=== PATIENT | male | born 1935 | race Caucasian/White ===

== ENCOUNTER 2017-08-16 06:22 | Day surgery (SDC) | payer MEDICARE ==
[~2017-08-16] VITALS: Ht 172.7 cm; Wt 70.5 kg
[2017-08-16] VITALS (9 sets, daily range): BP systolic 100–138; BP diastolic 50–80; PULSE 54–68; RESP 18–20; TEMP 97.6–97.8; O2SAT 93–98
[~2017-08-16 06:22] MED LIST: ALBU1.25 NEB; COUM2TAB PO; COUM5TAB PO; DIGO.125 PO; MEVA40TA6 PO; NITR0.4S SL; TOPR50TA PO; VIAG50TA PO
[2017-08-16] MEDS ORDERED: FLUT50SP EACH NARE (06:53)
[2017-08-16] MEDS ORDERED: FURO20TA PO (06:53)
[2017-08-16] MEDS ORDERED: WARF-18 PO (06:53)
[2017-08-16] MEDS ORDERED: MAGN400T2 PO (06:53)
[2017-08-16] MEDS ORDERED: ALBU.5I NEB (06:53)
[2017-08-16] MEDS ORDERED: VENTAER INH (06:53)
[2017-08-16] MEDS ORDERED: IPRA0.02 NEB (06:53)
[2017-08-16] MEDS ORDERED: LOVA40TA PO (06:53)
[2017-08-16] MEDS ORDERED: FLUT1INH7 INH (06:53)
[2017-08-16] MEDS ORDERED: GABA100C4 PO (06:53)
[2017-08-16] MEDS ORDERED: MEMA1TAB2 PO (06:53)
[2017-08-16] MEDS ORDERED: NITR0.4S SL (06:53)
[2017-08-16] MEDS ORDERED: BETA0.052 TOPICAL (06:53)
[2017-08-16] MEDS ORDERED: MULTTAB67 PO (06:53)
[2017-08-16] MEDS ORDERED: SODIUM CHLOR 0.9% 1000 ML IV SCH (07:00)
[2017-08-16] MEDS ORDERED: SODIUM CHLORIDE 2 ML FLUSH PRN IV FLUSH (07:15)
[2017-08-16 07:20] LABS: PROTHROMBIN TIME - PATIENT 10.6 SEC (9.8-11.6)
[2017-08-16] MEDS ORDERED: MIDAZOLAM HCL 2 MG/2 ML VIAL ONE (07:53)
[2017-08-16] MEDS ORDERED: LIDOCAINE HCL 1% 20 ML VIAL ONE (08:06)
--- NOTE | 2017-08-16 08:50 | PD.RAD ---
Post CT Procedure Prog Note Pre Procedure Diagnosis: (1) Lung mass Post Procedure Diagnosis: (1) Lung mass Procedure Date: Aug 16, 2017 Supervising Radiologist: Eric Mack JR Anesthesia: Conscious Sedation Plan of Activity Patient to Unit: ROPU Patient Condition: Good See PACS Report for procedural detail/treatment Biopsy Imaging Guidance: CT Side: Left Biopsy Procedure: Lung Specimen: Core Biopsy Findings: 3 core samples of left upper lobe lung mass. Post bx images show small volume intraparenchymal hemorrhage. Moderate sized PTX. CXR pending Plan CXR pending. Possible chest tube. Jr. Frederick,Eric Lam MD Aug 16, 2017 08:50
[2017-08-16] MEDS ORDERED: oxyCODONE/ACETAMINOPHEN 5 MG/325 MG TAB PO PRN (09:00)
[2017-08-16] MEDS ORDERED: SODIUM CHLORIDE 2 ML FLUSH BID IV FLUSH SCH (09:00)
--- NOTE | 2017-08-16 09:02 | RADRPT ---
EXAM DATE/TIME: 08/16/2017 08:52 [facility] COMPARISON: No previous studies available for comparison. INDICATIONS : Evaluate for pneumonthorax post left lung biopsy MEDICAL HISTORY : None. SURGICAL HISTORY : None. ENCOUNTER: Initial ACUITY: 1 day PAIN SCORE: 0/10 LOCATION: Left chest FINDINGS: A single frontal expiratory view of the chest was performed. The lungs are symmetrically aerated. No evidence of pneumothorax. Biopsied mass in the left lower lung zone. Mediastinal structures are in the midline. The cardio-mediastinal contours and bronchopulmonary markings are unremarkable for an expiratory exam . Osseous structures are intact. CONCLUSION: 1. No significant pneumothorax status post lung mass biopsy. Will Cartwright MD on August 16, 2017 at 8:59 Board Certified Radiologist. This report was verified electronically.
--- NOTE | 2017-08-16 09:34 | RADRPT ---
EXAM DATE/TIME: 08/16/2017 08:23 [facility] COMPARISON: No previous studies available for comparison. INDICATIONS : Left lung mass. SEDATION TIME: 30 minutes BIOPSY SITE: Left MEDICATION(S): 1.) 1.5 mg midazolam (Versed) IV 2.) 100 mcg fentanyl (Sublimaze) IV DEVICE(S): 1.) 20 gauge Temno core biopsy needle MEDICAL HISTORY : Cardiovascular disease. Hypertension. SURGICAL HISTORY : CABG Abdominal aortic aneurysm repair. ENCOUNTER: Initial ACUITY: 1 day PAIN SCORE: 0/10 LOCATION: Left chest A total of three core specimen(s) were obtained and sent to the laboratory for pathologic evaluation. PROCEDURE: 1. CT guided lung biopsy. 2. Conscious sedation with continuous EKG and oximetry monitoring. 3. EKG and oximetry remained stable throughout the procedure. Prior to the procedure informed consent was obtained. Any appropriate prior imaging studies were rev iewed. Using automated exposure control and adjustment of the mA and/or kV according to patient size, radiation dose was kept as low as reasonably achievable to obtain optimal diagnostic quality images. DICOM format image data is available electronically for review and comparison. The site was prepped in a sterile fashion. Full sterile technique was used, including cap, mask, yobani rile gloves and gown and a large sterile sheet. Hand hygiene and 2% chlorhexidine and/or betadine/al cohol prep was utilized per protocol for cutaneous antisepsis. The skin and subcutaneous tissues wer e infiltrated with local anesthetic solution. With CT guidance the approximate 2.5 cm mass within the superior segment of the left lower lobe was l ocalized. A 19 gauge coaxial needle was passed via posterior approach towards the lesion. 3 core samp les were obtained and placed in formalin. Adequate hemostasis was obtained with compression at the pu ncture site. Follow-up CT scan reveals a modest sized pneumothorax. A small amount of intraparenchymal hemorrhage noted. Conscious sedation was performed with the prescribed dosages and duration as above in the presence of an independent trained radiology nurse to assist in the monitoring of the patient. EKG and oximetry remained stable throughout the procedure. The patient tolerated the procedure well and there were no complications. The patient was sent to Radiology Outpatient Unit in stable condition. CONCLUSION: Uncomplicated CT guided core biopsy of a left superior segment lower lobe pulmonary mass. Eric Mack Jr., MD on August 16, 2017 at 9:25 Board Certified Radiologist. This report was verified electronically.
[2017-08-16] MEDS ORDERED: ACETAMINOPHEN 500 MG CPLT PO ONE (10:45)
--- NOTE | 2017-08-16 11:22 | RADRPT ---
EXAM DATE/TIME: 08/16/2017 11:08 [facility] COMPARISON: CHEST EXPIRATION ONLY, August 16, 2017, 8:52. INDICATIONS : Post left lung biopsy. MEDICAL HISTORY : Cardiovascular disease. Hypertension. SURGICAL HISTORY : CABG. Abdominal aortic aneurysm repair. ENCOUNTER: Subsequent ACUITY: 1 day PAIN SCORE: 0/10 LOCATION: Left chest FINDINGS: A single portable expiration view of the chest shows a tiny left apical pneumothorax. In retrospect t his is unchanged from the prior study. Bibasilar atelectasis. Left lower lobe pulmonary mass. No effu sions. Heart mildly enlarged. Coronary artery markers and mediastinal surgical clips. Median sternoto my wires. Chronic elevation of left hemidiaphragm. CONCLUSION: Stable tiny left apical pneumothorax following lung biopsy. Eric Mack Jr., MD on August 16, 2017 at 11:18 Board Certified Radiologist. This report was verified electronically.
== END 2017-08-16 13:27 | disposition home or self-care (01) ==
LOC: HRAD 06:22 → HRIP 06:31 → HRAD 13:27
PROVIDERS: ATTEND Thoracic Surgery (Cardiothoracic Vascular Surgery)
DX: R91.8 Other nonspecific abnormal finding of lung field (principal); I10 Essential (primary) hypertension; I25.10 Atherosclerotic heart disease of native coronary artery without angina pectoris; Z95.1 Presence of aortocoronary bypass graft; Z87.891 Personal history of nicotine dependence; Z79.01 Long term (current) use of anticoagulants
CPT/HCPCS: 32405; 71045; 77012; 85610; 85730; 88305; 88341; 88342; J2250; J3010; J7030

== ENCOUNTER 2017-09-07 07:37 | Day surgery (SDC) | payer MEDICARE ==
[~2017-09-07] VITALS: Ht 172.7 cm; Wt 69.5 kg
[~2017-09-07 07:37] MED LIST changes: +ALBU.5I NEB; -ALBU1.25 NEB; +BETA0.052 TOPICAL; -COUM2TAB PO; -COUM5TAB PO; -DIGO.125 PO; +FLUT1INH7 INH; +FLUT50SP EACH NARE; +FURO20TA PO; +GABA100C4 PO; +IPRA0.02 NEB; +LOVA40TA PO; +MAGN400T2 PO; +MEMA1TAB2 PO; -MEVA40TA6 PO; +MULTTAB67 PO; -TOPR50TA PO; +VENTAER INH; -VIAG50TA PO; +WARF-18 PO
[2017-09-07 08:20] VITALS: BP 115/72; PULSE 83; RESP 20; TEMP 97.4; O2SAT 97
[2017-09-07] MEDS ORDERED: ceFAZolin 2 GM PREMIX 50 ML - implanted port/tunneled catheter insertion IV SCH (09:00)
[2017-09-07] MEDS ORDERED: SODIUM CHLORIDE 0.9% 1000 ML IV SCH (09:00)
[2017-09-07] MEDS ORDERED: VANCOMYCIN 1000 MG/NS 250 ML - implanted port/tunneled catheter IV SCH ×2 (09:00)
[2017-09-07] MEDS ORDERED: POVIDONE IODINE 5% (ANTISEPSIS KIT) 4 APPLICATIONS EACH NARE SCH (09:00)
[2017-09-07] MEDS ORDERED: CHLORHEXIDINE GLUCONATE 2 % 1 PACK (2 CLOTHS) TOPICAL SCH (09:00)
[2017-09-07] MEDS ORDERED: VIAG100T PO (09:07)
[2017-09-07] MEDS ORDERED: METO25TA3 PO (09:07)
[2017-09-07] MEDS ORDERED: DIGO0.12 PO (09:07)
[2017-09-07 09:36] LABS: AUTOMATED NEUTROPHIL # 4.2 TH/MM3 (1.8-7.7); BASOPHIL % 0.6 % (0.0-2.0); EOSINOPHIL # 0.1 TH/MM3 (0-0.4); EOSINOPHIL % 1.7 % (0.0-4.0); HEMATOCRIT 41.9 % (39.0-51.0); HEMOGLOBIN 14.1 GM/DL (13.0-17.0); LYMPH % 20.9 % (9.0-44.0); LYMPHOCYTE # 1.3 TH/MM3 (1.0-4.8); MEAN CELL VOLUME 92.5 FL (80.0-100.0); MEAN CORPUSCULAR HEMOGLOBIN 31.2 PG (27.0-34.0); MEAN CORPUSCULAR HGB CONC 33.8 % (32.0-36.0); MEAN PLATELET VOLUME 7.1 FL (7.0-11.0); MONO % 11.1 % (0.0-8.0); MONOCYTE # 0.7 TH/MM3 (0-0.9); NEUT % 65.7 % (16.0-70.0); PLATELET COUNT 174 TH/MM3 (150-450); RED BLOOD COUNT 4.53 MIL/MM3 (4.50-5.90); RED CELL DISTRIBUTION WIDTH 14.3 % (11.6-17.2); WHITE BLOOD COUNT 6.4 TH/MM3 (4.0-11.0)
[2017-09-07 09:43] LABS: INTERNATIONAL NORMALIZED RATIO 1.1 RATIO; PROTHROMBIN TIME - PATIENT 10.8 SEC (9.8-11.6)
[2017-09-07] MEDS ORDERED: MIDAZOLAM HCL 2 MG/2 ML VIAL ONE (10:38)
[2017-09-07] MEDS ORDERED: LIDOCAINE 1%/EPINEPHrine 1:100,000 SOLN 30 ML VIAL ONE (10:53)
--- NOTE | 2017-09-07 11:41 | PD.RAD ---
Post Procedure Progress Note Pre Procedure Diagnosis: (1) Lung mass Post Procedure Diagnosis: (1) Lung mass Procedure Date: Sep 07, 2017 Supervising Radiologist: Rm Junior Estimated blood loss: 3cc Anesthesia: Local, Conscious Sedation Plan of Activity Patient to Unit: ROPU Patient Condition: Fair Additional Comments: Port placed via the right subclavian vein. Catheter in good position OK for use Full dictated report to follow See PACS Report for procedural detail/treatment Rm Junior MD Sep 07, 2017 11:41
[2017-09-07] MEDS ORDERED: SODIUM CHLORIDE 0.9% FLUSH 10 ML FLUSH IVF PRN (11:45)
[2017-09-07 11:50] VITALS: BP 120/71; PULSE 67; RESP 20; TEMP 97.3; O2SAT 95
[2017-09-07 12:35] VITALS: BP 143/71; PULSE 58; RESP 18; O2SAT 93
--- NOTE | 2017-09-07 12:53 | RADRPT ---
EXAM DATE/TIME: 09/07/2017 10:46 [facility] COMPARISON: No previous studies available for comparison. INDICATIONS : Patient with history of squamous cell carcinoma of the left lung in need of [id number] placement. MEDICAL HISTORY : HLD, CHF, A-Fib, COPD, HTN, Aortic abdominal aneurysm, Left lung mass, Diverticulitis, CAD, Angina, M I SURGICAL HISTORY : CABG, Abdominal aortic stent, Colonoscopy, Left lung biopsy ENCOUNTER: Initial ACUITY: 3 months PAIN SCORE: 0/10 FLUORO TIME: 0.7 minutes IMAGE SERIES: 2 SEDATION TIME: 10 minutes ACCESS: Right subclavian vein SEDATION: 1.) 1 mg midazolam (Versed) IV 2.) 50 mcg fentanyl (Sublimaze) IV Prophylactic antibiotics were administered with appropriate pre-procedure timing. Vancomycin within 2 hours of procedure, Ancef (or alternative) within 1 hour of procedure. DEVICE: 1. 8 Prydeinig single lumen Xcela Plus Port PROCEDURE : 1. Continuous pulse oximetry and EKG monitoring. 2. Intravenous conscious sedation. 3. Ultrasound guidance for venous access. 4. Fluoroscopic guided implantable central venous port placement. The patient was placed supine. The neck was prepped in sterile fashion. Full sterile technique was u sed, including cap, mask, sterile gloves and gown, and a large sterile sheet. Hand hygiene and 2% ch lorhexidine Betadine was utilized per protocol for cutaneous antisepsis with appropriate dry time for site. Sterile gel and sterile probe cover were utilized for ultrasound guidance. The skin and sub cutaneous tissues were infiltrated with local anesthetic solution. Under direct ultrasound guidance, central venous access was accomplished via the right subclavian vei n. The ultrasound images depicting access guidance were stored and saved to PACS for permanent recor d. A subcutaneous pocket was created using blunt dissection. The port was introduced to the pocket. The catheter tubing was cut to a suitable length and then was introduced through a valved Peel-Away sheath and positioned with catheter tubing tip at the cavo-atrial junction level. The pocket incisi on was closed with subcuticular Vicryl suture. Steri-Strips were applied. The port was flushed and locked with heparin solution per protocol. Sterile dressing was applied to the site. The patient to lerated the procedure well. Conscious sedation was performed with the prescribed dosages and duration as above in the presence of an independent trained radiology nurse to assist in the monitoring of the patient. EKG and oximetry remained stable throughout the procedure. The patient tolerated the procedure well and there were no complications. The patient was sent to post anesthesia recovery in stable condition. CONCLUSION: Uncomplicated ultrasound and fluoroscopic guided implanted central venous port catheter placement as described in detail above. An 8 Prydeinig Power port was placed. Rm Junior MD on September 07, 2017 at 12:51 Board Certified Radiologist. This report was verified electronically.
== END 2017-09-07 13:45 | disposition home or self-care (01) ==
LOC: HROP 07:37 → HRIP 08:35 → HROP 13:45
PROVIDERS: ATTEND Internal Medicine Hematology & Oncology
DX: Z45.2 Encounter for adjustment and management of vascular access device (principal); C34.90 Malignant neoplasm of unspecified part of unspecified bronchus or lung; I11.0 Hypertensive heart disease with heart failure; I50.9 Heart failure, unspecified; I48.91 Unspecified atrial fibrillation; I25.10 Atherosclerotic heart disease of native coronary artery without angina pectoris; E78.5 Hyperlipidemia, unspecified; J44.9 Chronic obstructive pulmonary disease, unspecified; Z95.1 Presence of aortocoronary bypass graft
CPT/HCPCS: 36561; 76937; 77001; 85025; 85610; 85730; 99152; C1788; J0690; J1642; J2250; J3010; J3370; J7030; J7050

== ENCOUNTER 2017-11-10 15:05 | Emergency (ER) | payer MEDICARE ==
[~2017-11-10 15:05] MED LIST changes: +DIGO0.12 PO; +METO25TA3 PO; +VIAG100T PO
[2017-11-10 15:22] VITALS: BP 123/58; PULSE 86; RESP 18; TEMP 97.7; O2SAT 100
[2017-11-10 15:39] VITALS: BP 143/70; PULSE 69; RESP 19; O2SAT 100
[2017-11-10] MEDS ORDERED: SODIUM CHLORIDE 0.9% FLUSH 10 ML FLUSH IVF PRN (15:45)
[2017-11-10 15:49] VITALS: O2SAT 100
--- NOTE | 2017-11-10 16:00 | PD ---
HPI Chief Complaint: Dizziness Time Seen by Provider: 15:40 Travel History International Travel<30 days: No Contact w/Intl Traveler<30days: No Traveled to known affect area: No History of Present Illness HPI Patient is a 81-year-old male with a history of metastatic lung cancer dizziness , is covered by his family and states that the dizziness is been going on for about the past month, called their oncologist Dr. Holman who recommended coming to the emergency department for a CAT scan of the head check for dehydration, no abdominal pain no nausea vomiting no diarrhea no constipation no focalized weakness. Family states he is just been gradually weakening to the point where he is bruising from really to really and furniture to furniture. Patient has also noticed a bruise behind his left knee, associated with a tick bite. Patient states that they actually took the tick off. Dr. Holman did call and gave a report to nursing requesting rule out dehydration and brain metastases. PFSH Past Medical History Cancer: Yes (LUNG) Cardiovascular Problems: Yes (CHF, CAD, A FIB) Diabetes: No Endocrine: No Glaucoma: No Genitourinary: Yes (slow stream) Hepatitis: No Hypertension: Yes Immune Disorder: No Medical other: Yes (ELEVATED CHOLESTEROL) Reproductive: No Respiratory: Yes (COPD) Immunizations Current: Yes Thyroid Disease: No Past Surgical History Abdominal Surgery: Yes (AORTIC STENT) AICD: No Cardiac Surgery: Yes (3 CABG'S, LEFT CHEST PACEMAKER LEADS) Ear Surgery: No Endocrine Surgery: No Eye Surgery: Yes (LEFT CATARACT EXTRACTION WITH LENS) Genitourinary Surgery: No Gynecologic Surgery: No Joint Replacement: No Oral Surgery: No Pacemaker: No Thoracic Surgery: Yes Other Surgery: Yes Social History Alcohol Use: No Tobacco Use: No (does not smoke now) Substance Use: No Allergies-Medications (Allergen,Severity, Reaction): Coded Allergies: niacin (Unverified Allergy, Intermediate, ITCHING, 11/10/17) Reported Meds & Prescriptions Reported Meds & Active Scripts Active Doxycycline Hyclate 100 Mg Cap 100 Mg PO BID Reported Viagra (Sildenafil Citrate) 100 Mg Tab 100 Mg PO DAILY PRN Metoprolol Tartrate 25 Mg Tab 25 Mg PO BID Digoxin 0.125 Mg Tab 0.125 Mg PO DAILY Betamethasone Dipropionate Topical 0.05% Cream 1 Applic TOPICAL BID Gabapentin 100 Mg Cap 100 Mg PO HS Memantine 10 Mg Tab 10 Mg PO BID Lovastatin 40 Mg Tab 40 Mg PO DAILY Furosemide 20 Mg Tab 20 Mg PO BID Take 2 tabs daily Ventolin Hfa 18 GM Inh (Albuterol Sulfate) 90 Mcg/Act Aer 2 Puff INH Q6H PRN Ipratropium Neb (Ipratropium Laporte) 0.5 Mg/2.5 Ml Amp 0.5 Mg NEB Q6HR NEB Breo Ellipta Inh (Fluticasone/Vilanterol) 200-25 Mcg/Act Inh 1 Puff INH DAILY Use daily at the same time. Albuterol Neb (Albuterol Sulfate) 2.5 Mg/0.5 Ml Neb 2.5 Mg NEB Q6HR NEB Note: The Albuterol Sulfate Inhalation Solution is concentrated and must be diluted. Read complete instructions carefully before using. Nitrostat SL (Nitroglycerin) 0.4 Mg Subl 0.4 Mg SL DIRECTED PRN 1 tablet under the tongue as needed for chest pain. Repeat every 5 minutes for a total of 3 DOSES or call 911 if NO relief. Warfarin 2.5 Mg Tab 2.5 Mg PO DAILY take 2.5 mg RIVERO, TAKE 1/2 TAB Fluticasone Nasal Brock 50 Mcg/Act Naspr 50 Mcg EACH NARE BID 50 mcg/spray Multiple Vitamin 1 Tab 1 Tab PO DAILY Magnesium Oxide 400 Mg Tab 400 Mg PO DAILY Review of Systems Except as stated in HPI: all other systems reviewed are Neg Physical Exam Narrative GENERAL: WD/WN bald male in nad. Appears non-toxic. SKIN: Warm and dry. He does have a small bruise on the medial aspect of his popliteal fossa on the right side, small punctate wound in the middle consistent with a tick bite, could be evolving erythema migrans but there is no central clearing as of yet. HEAD: Atraumatic. Normocephalic. EYES: Pupils equal and round. No scleral icterus. No injection or drainage. ENT: No nasal bleeding or discharge. Mucous membranes pink and moist. NECK: Trachea midline. No JVD. CARDIOVASCULAR: Regular rate and rhythm. RESPIRATORY: No accessory muscle use. Clear to auscultation. Breath sounds equal bilaterally. GASTROINTESTINAL: Abdomen soft, non-tender, nondistended. Hepatic and splenic margins not palpable. MUSCULOSKELETAL: Extremities without clubbing, cyanosis, or edema. No obvious deformities. NEUROLOGICAL: AAOx4. Pleasant. CN ii-xii intact and non-focal. Cerebellar testing with myuzrv-[id number] and heel-minaya testing negative. 5/5 strength in all four extremities. Ambulates with minimal assistance, insisted to walk from triage to Echo pod room. PSYCHIATRIC: Appropriate mood and affect; insight and judgment normal. Data Data Last Documented VS Vital Signs Date Time Temp Pulse Resp B/P (MAP) Pulse Ox O2 Delivery O2 Flow Rate FiO2 11/10/17 20:20 11/10/17 19:13 74 18 97 Room Air 11/10/17 15:22 97.7 Orders Orders Complete Blood Count With Diff (11/10/17 15:40) Comprehensive Metabolic Panel (11/10/17 15:40) Ct Brain W/O Iv Contrast(Rout) (11/10/17 15:40) Ecg Monitoring (11/10/17 15:40) Iv Access Insert/Monitor (11/10/17 15:40) Oximetry (11/10/17 15:40) Sodium Chloride 0.9% Flush (Ns Flush) (11/10/17 15:45) Sodium Chlor 0.9% 1000 Ml Inj (Ns 1000 M (11/10/17 19:15) Doxycycline (Vibramycin) (11/10/17 19:15) Ed Discharge Order (11/10/17 19:06) Labs Laboratory Tests Test 11/10/17 16:05 White Blood Count 3.4 TH/MM3 Red Blood Count 3.62 MIL/MM3 Hemoglobin 11.5 GM/DL Hematocrit 33.9 % Mean Corpuscular Volume 93.7 FL Mean Corpuscular Hemoglobin 31.8 PG Mean Corpuscular Hemoglobin Concent 34.0 % Red Cell Distribution Width 17.6 % Platelet Count 162 TH/MM3 Mean Platelet Volume 7.4 FL Neutrophils (%) (Auto) 50.7 % Lymphocytes (%) (Auto) 35.4 % Monocytes (%) (Auto) 11.5 % Eosinophils (%) (Auto) 1.7 % Basophils (%) (Auto) 0.7 % Neutrophils # (Auto) 1.7 TH/MM3 Lymphocytes # (Auto) 1.2 TH/MM3 Monocytes # (Auto) 0.4 TH/MM3 Eosinophils # (Auto) 0.1 TH/MM3 Basophils # (Auto) 0.0 TH/MM3 CBC Comment DIFF FINAL Differential Comment Blood Urea Nitrogen 23 MG/DL Creatinine 0.98 MG/DL Random Glucose 87 MG/DL Total Protein 7.7 GM/DL Albumin 3.5 GM/DL Calcium Level 8.4 MG/DL Alkaline Phosphatase 123 U/L Aspartate Amino Transf (AST/SGOT) 27 U/L Alanine Aminotransferase (ALT/SGPT) 25 U/L Total Bilirubin 0.6 MG/DL Sodium Level 139 MEQ/L Potassium Level 3.9 MEQ/L Chloride Level 100 MEQ/L Carbon Dioxide Level 32.7 MEQ/L Anion Gap 6 MEQ/L Estimat Glomerular Filtration Rate 74 ML/MIN [facility] Medical Decision Making Medical Screen Exam Complete: Yes Emergency Medical Condition: Yes Differential Diagnosis Dizziness, vertigo, intracranial abnormality, dehydration, acute cerebellar stroke highly unlikely given the chronicity of the symptoms and absence of cerebellar signs. Narrative Course Patient room to the emergency department initial workup is reassuring, he does have a mild alkalosis which could be considered to be a contraction alkalosis, was given a liter normal saline after discussion with Dr. Holman his oncologist. Also discussed the rash was Dr. Holman was aware of at least by phone and we discussed the possibility of Lyme disease certainly it is not entirely endemic in this area but not out of the realm of possibility. Still given his immune compromise with think it is reasonable to start him on the doxycycline regimen. He will follow-up with Dr. Holman this week. Discussed signs symptoms that should prompt revisit to the ER. Otherwise no emergent cause of his dizziness and fatigue identified he is stable for discharge. Diagnosis Primary Impression: Dizziness and giddiness Additional Impression: Rash Med/Other Pt SpecificInfo: Prescription(s) given Scripts Doxycycline Hyclate (Doxycycline Hyclate) 100 Mg Cap 100 MG PO BID for Infection, #28 CAP 0 Refills Prov: Clifton Donovan MD 11/10/17 Disposition: 01 DISCHARGE HOME Condition: Stable Clifton Donovan MD Nov 10, 2017 16:00
[2017-11-10 16:12] LABS: AUTOMATED NEUTROPHIL # 1.7 TH/MM3 (1.8-7.7); BASOPHIL % 0.7 % (0.0-2.0); EOSINOPHIL # 0.1 TH/MM3 (0-0.4); EOSINOPHIL % 1.7 % (0.0-4.0); HEMATOCRIT 33.9 % (39.0-51.0); HEMOGLOBIN 11.5 GM/DL (13.0-17.0); LYMPH % 35.4 % (9.0-44.0); LYMPHOCYTE # 1.2 TH/MM3 (1.0-4.8); MEAN CELL VOLUME 93.7 FL (80.0-100.0); MEAN CORPUSCULAR HEMOGLOBIN 31.8 PG (27.0-34.0); MEAN PLATELET VOLUME 7.4 FL (7.0-11.0); MONO % 11.5 % (0.0-8.0); MONOCYTE # 0.4 TH/MM3 (0-0.9); NEUT % 50.7 % (16.0-70.0); PLATELET COUNT 162 TH/MM3 (150-450); RED BLOOD COUNT 3.62 MIL/MM3 (4.50-5.90); RED CELL DISTRIBUTION WIDTH 17.6 % (11.6-17.2); WHITE BLOOD COUNT 3.4 TH/MM3 (4.0-11.0)
[2017-11-10 16:35] LABS: ALBUMIN 3.5 GM/DL (3.4-5.0); ALT (GPT) 25 U/L (12-78); AST (GOT) 27 U/L (15-37); BICARBONATE 32.7 MEQ/L (21.0-32.0); BLOOD UREA NITROGEN 23 MG/DL (7-18); CALCIUM 8.4 MG/DL (8.5-10.1); CHLORIDE 100 MEQ/L (98-107); CREATININE 0.98 MG/DL (0.60-1.30); GLOMERULAR FILTRATION RATE 74 ML/MIN (>89); GLUCOSE,RANDOM 87 MG/DL (74-106); SODIUM (NA) 139 MEQ/L (136-145)
[2017-11-10 16:37] LABS: ALKALINE PHOSPHATASE 123 U/L (45-117); TOTAL BILIRUBIN ADULT 0.6 MG/DL (0.2-1.0); TOTAL PROTEIN 7.7 GM/DL (6.4-8.2)
[2017-11-10 17:30] VITALS: BP 140/73; PULSE 75
--- NOTE | 2017-11-10 18:48 | RADRPT ---
EXAM DATE/TIME: 11/10/2017 18:22 [facility] COMPARISON: No previous studies available for comparison. INDICATIONS : Patient complains of weakness; states that he fell twice. RADIATION DOSE: 56.35 CTDIvol (mGy) MEDICAL HISTORY : Cardiovascular disease. Carcinoma, lung. Congestive heart failure. Hypertension SURGICAL HISTORY : CABG ENCOUNTER: Initial ACUITY: 2 days PAIN SCALE: 0/10 LOCATION: cranial TECHNIQUE: Multiple contiguous axial images were obtained of the head. Using automated exposure control and adj ustment of the mA and/or kV according to patient size, radiation dose was kept as low as reasonably a chievable to obtain optimal diagnostic quality images. DICOM format image data is available electro nically for review and comparison. FINDINGS: CEREBRUM: The ventricles are normal for age. No evidence of midline shift, mass lesion, hemorrhage or acute in farction. No extra-axial fluid collections are seen. POSTERIOR FOSSA: The cerebellum and brainstem are intact. The 4th ventricle is midline. The cerebellopontine angle i s unremarkable. EXTRACRANIAL: The visualized portion of the orbits is intact. Right maxillary sinus opacified. SKULL: The calvaria is intact. No evidence of skull fracture. CONCLUSION: 1. No acute intracranial abnormalities. Opacification of the right maxillary sinus. Cody Hobson MD on November 10, 2017 at 18:44 Board Certified Radiologist. This report was verified electronically.
[2017-11-10] MEDS ORDERED: DOXY100C PO (19:05)
[2017-11-10 19:13] VITALS: BP 123/73; PULSE 74; RESP 18; O2SAT 97
[2017-11-10] MEDS ORDERED: DOXYCYCLINE HYCLATE 100 MG CAP PO ONE (19:15)
[2017-11-10] MEDS ORDERED: SODIUM CHLOR 0.9% 1000 ML INJ 1,000 ML IV ONE (19:15)
== END 2017-11-10 20:21 | disposition home or self-care (01) ==
LOC: NEPE 15:05
DX: R42 Dizziness and giddiness (principal); R21 Rash and other nonspecific skin eruption; E87.3 Alkalosis; W57.XXXA Bitten or stung by nonvenomous insect and other nonvenomous arthropods, initial encounter; I11.0 Hypertensive heart disease with heart failure; I50.9 Heart failure, unspecified; I25.10 Atherosclerotic heart disease of native coronary artery without angina pectoris; I48.91 Unspecified atrial fibrillation; E78.00 Pure hypercholesterolemia, unspecified; J44.9 Chronic obstructive pulmonary disease, unspecified; Z85.118 Personal history of other malignant neoplasm of bronchus and lung; Z95.1 Presence of aortocoronary bypass graft; Z79.01 Long term (current) use of anticoagulants; Z79.899 Other long term (current) drug therapy
CPT/HCPCS: 70450; 80053; 85025; 96360; 99284; J7030